=== PATIENT | female | born 1965 | race Caucasian/White ===

== ENCOUNTER 2016-04-20 20:24 | Emergency (ER) | payer OTHER ==
[~2016-04-20] VITALS: Ht 162.6 cm; Wt 70.9 kg
[~2016-04-20 20:24] MED LIST: FLUO10CA48 PO; MECL1TAB42 PO; PRLSR20 PO
[2016-04-20 20:26] VITALS: TEMP 36.7; Ht 162.6 cm; Wt 70.9 kg
[2016-04-20 21:31] LABS: BASO % 0.3 %; BASO ABS # 0.02 K/uL (0-0.2); COMPLETE YES; IG% 0.2 %; LYMPH % 25.8 %; LYMPH ABS # 1.48 K/uL (1.2-3.4); MEAN CELL VOLUME 82.2 fL (80-100); MEAN CORPUSCULAR HEMOGLOBIN 27.2 pg (25-34); MEAN CORPUSCULAR HGB CONC 33.1 g/dl (32-36); MEAN PLATELET VOLUME 9.4 fL (7.4-10.4); MONO % 9.1 %; NEUT % 63.6 %; PLATELET COUNT 209 K/uL (130-400); RED BLOOD COUNT 4.26 M/uL (4.2-5.4); WHITE BLOOD COUNT 5.74 K/uL (4.8-10.8)
[2016-04-20 21:41] LABS: PARTIAL THROMBOPLASTIN RATIO 1.1; PROTHROMBIN TIME (PATIENT) 11.1 SECONDS (9.0-12.0)
[2016-04-20 21:51] LABS: ALT/SGPT 16 U/L (12-78); BLOOD UREA NITROGEN 10 mg/dl (7-18); BUN/CREATININE RATIO 12.4 (10-20); CALCIUM 8.6 mg/dl (8.5-10.1); CARBON DIOXIDE 26 mmol/L (21-32); CHLORIDE 106 mmol/L (98-107); GLUCOSE 86 mg/dl (70-99); POTASSIUM 3.5 mmol/L (3.5-5.1); SODIUM 142 mmol/L (136-145)
[2016-04-20 21:54] LABS: ALKALINE PHOSPHATASE 89 U/L (45-117); AST/SGOT 14 U/L (15-37)
--- NOTE | 2016-04-20 22:05 | DIAGNOSTIC IMAGING REPORT ---
CT OF THE HEAD WITHOUT CONTRAST CLINICAL HISTORY: Headache. Bruising. Evaluate for bleed. COMPARISON STUDY: Head CT November 30, 2015. CT DOSE: 537.48 mGy.cm TECHNIQUE: Helical axial images of the head were obtained without IV contrast. Automated exposure control was utilized for the study. FINDINGS: No acute intracranial hemorrhage, midline shift or mass effect is present. Brain volume is normal. Ventricular system is normal. The basilar cisterns are patent. No extra-axial collections are present. Yoder-white differentiation is maintained. There are no findings to suggest acute dural sinus thrombosis or acute territorial infarct. No calvarial fracture is present. A 9 mm left frontotemporal scalp lesion is unchanged. This is indeterminate. IMPRESSION: 1. No acute intracranial findings. 2. No calvarial fracture. 3. 9 mm left frontotemporal scalp lesion. This is indeterminate and could be correlated with physical exam. Electronically signed by: Terry Cancino M.D. 04/20/2016 10:04 PM Dictated Date/Time: 04/20/2016 10:01 PM
[2016-04-20 22:43] VITALS: BP 128/74; PULSE 78; O2SAT 99
--- NOTE | 2016-04-21 01:00 | EMERGENCY ROOM VISIT NOTE ---
History Report prepared by Susana: Gloria Nash Under the Supervision of: Dr. Dick Hendrix M.D. First contact with patient: 21:05 Chief Complaint: HEADACHE Stated Complaint: ROBLES, BRUISING History of Present Illness The patient is a 50 year old female who presents to the Emergency Room with complaints of an intermittent headache that began one week ago. The patient states that she went to her PCP's office today and discussed her headache. She also noted bruising throughout her body. The patient states that her headache is localized to the front of her head. It is not severe. She states that her PCP sent her to the emergency department for further evaluation. The patient notes that she has had intermittent nose bleeds for the past month. The patient states that she had been using Ibuprofen for her discomfort, and states that her PCP told her to stop taking it one week ago. The patient denies any fevers, chest pain, abdominal pain, rectal bleeding, or melena. Source of History: patient Onset: one week ago Position: head Quality: ache Timing: intermittent Associated Symptoms: No abdominal pain, No chest pain, No fevers, No melena Note: Associated Symptoms: nose bleeds Review of Systems See HPI for pertinent positives & negatives. A total of 10 systems reviewed and were otherwise negative. Past Medical & Surgical Medical Problems: (1) Abnormal CT scan, chest (2) Anxiety (3) Corpus luteum cyst (4) Depression (5) Diab Chloe Wo Compl, Type Ii Or Unspec Type, Not Uncntrld (6) Diarrhea (7) DM type 2 (diabetes mellitus, type 2) (8) GERD (gastroesophageal reflux disease) (9) H. pylori infection (10) H/o H pylori gastritis (11) H/O renal calculi (12) Hx-Vaccine Allergy (13) Hypertension Nos (14) Left ankle sprain (15) Menorrhagia Surgical Problems: (1) H/O total hysterectomy (2) H/O tubal ligation (3) History of cholecystectomy (4) S/p repair of ankle fracture Family History DVT MOTHER Diabetes mellitus Heart disease Hypertension Social History Smoking Status: Never Smoker Alcohol Use: none Drug Use: none Marital Status: , in relationship Housing Status: lives alone Occupation Status: employed Current/Historical Medications Scheduled Fluoxetine (Prozac), 10 MG PO DAILY Omeprazole (Prilosec), 20 MG PO BID Allergies Coded Allergies: Penicillins (Verified Allergy, Intermediate, SHORTNESS OF BREATH, 04/20/16) Tetanus Toxoid (Verified Allergy, Unknown, RASH, 04/20/16) Erythromycin (Verified Adverse Reaction, Unknown, N&V, 04/20/16) Physical Exam Vital Signs Date Time Temp Pulse Resp B/P Pulse Ox O2 Delivery O2 Flow Rate FiO2 04/20/16 22:43 78 20 128/74 99 04/20/16 21:58 73 18 139/80 99 Room Air 04/20/16 20:26 36.7 69 18 157/75 100 Room Air Physical Exam Constitutional: Vital signs reviewed. Eyes: Pupils are equal round reactive to light. Conjunctiva are noninjected. ENT: Pharynx is clear without erythema or exudate. Mucous membranes are moist. No nasal bleeding Neck supple without meningeal signs. Respiratory: Clear to auscultation bilaterally. Breath sounds are equal bilaterally. Cardiovascular: Regular rate and rhythm. No rubs or gallops. GI: Soft, nondistended and nontender. Bowel sounds are present. Musculoskeletal: No peripheral edema. No lower extremity tenderness. Integumentary: Scattered bruising to the thighs and upper arms, as well as the right hip. No petechia. keara to the left ankle. Neurological: The patient is awake and alert. Cranial nerves II-XII are intact. Motor is 5 out of 5 all extremities. Sensation is intact to light touch all extremities. Normal speech. No pronator drift. Psychiatric: Normal affect. Medical Decision & Procedures ER Provider Diagnostic Interpretation: CT results as stated below per my review and radiologist interpretation. CT OF THE HEAD WITHOUT CONTRAST CLINICAL HISTORY: Headache. Bruising. Evaluate for bleed. COMPARISON STUDY: Head CT November 30, 2015. CT DOSE: 537.48 mGy.cm TECHNIQUE: Helical axial images of the head were obtained without IV contrast. Automated exposure control was utilized for the study. FINDINGS: No acute intracranial hemorrhage, midline shift or mass effect is present. Brain volume is normal. Ventricular system is normal. The basilar cisterns are patent. No extra-axial collections are present. Yoder-white differentiation is maintained. There are no findings to suggest acute dural sinus thrombosis or acute territorial infarct. No calvarial fracture is present. A 9 mm left frontotemporal scalp lesion is unchanged. This is indeterminate. IMPRESSION: 1. No acute intracranial findings. 2. No calvarial fracture. 3. 9 mm left frontotemporal scalp lesion. This is indeterminate and could be correlated with physical exam. Electronically signed by: Terry Cancino M.D. 04/20/2016 10:04 PM Dictated Date/Time: 04/20/2016 10:01 PM Laboratory Results 04/20/16 21:20 Red Blood Count 4.26, Mean Corpuscular Volume 82.2, Mean Corpuscular Hemoglobin 27.2, Mean Corpuscular Hemoglobin Concent 33.1, Mean Platelet Volume 9.4, Neutrophils (%) (Auto) 63.6, Lymphocytes (%) (Auto) 25.8, Monocytes (%) (Auto) 9.1, Eosinophils (%) (Auto) 1.0, Basophils (%) (Auto) 0.3, Neutrophils # (Auto) 3.65, Lymphocytes # (Auto) 1.48, Monocytes # (Auto) 0.52, Eosinophils # (Auto) 0.06, Basophils # (Auto) 0.02 04/20/16 21:20 Test 04/20/16 21:20 White Blood Count 5.74 K/uL (4.8-10.8) Red Blood Count 4.26 M/uL (4.2-5.4) Hemoglobin 11.6 g/dL (12.0-16.0) Hematocrit 35.0 % (37-47) Mean Corpuscular Volume 82.2 fL (80-100) Mean Corpuscular Hemoglobin 27.2 pg (25-34) Mean Corpuscular Hemoglobin Concent 33.1 g/dl (32-36) Platelet Count 209 K/uL (130-400) Mean Platelet Volume 9.4 fL (7.4-10.4) Neutrophils (%) (Auto) 63.6 % Lymphocytes (%) (Auto) 25.8 % Monocytes (%) (Auto) 9.1 % Eosinophils (%) (Auto) 1.0 % Basophils (%) (Auto) 0.3 % Neutrophils # (Auto) 3.65 K/uL (1.4-6.5) Lymphocytes # (Auto) 1.48 K/uL (1.2-3.4) Monocytes # (Auto) 0.52 K/uL (0.11-0.59) Eosinophils # (Auto) 0.06 K/uL (0-0.5) Basophils # (Auto) 0.02 K/uL (0-0.2) RDW Standard Deviation 42.1 fL (36.4-46.3) RDW Coefficient of Variation 14.0 % (11.5-14.5) Immature Granulocyte % (Auto) 0.2 % Immature Granulocyte # (Auto) 0.01 K/uL (0.00-0.02) Prothrombin Time 11.1 SECONDS (9.0-12.0) Prothromb Time International Ratio 1.0 (0.9-1.1) Activated Partial Thromboplast Time 28.7 SECONDS (21.0-31.0) Partial Thromboplastin Ratio 1.1 Anion Gap 10.0 mmol/L (3-11) Est Creatinine Clear Calc Drug Dose 83.1 ml/min Estimated GFR () 101.0 Estimated GFR (Non- 87.2 BUN/Creatinine Ratio 12.4 (10-20) Calcium Level 8.6 mg/dl (8.5-10.1) Total Bilirubin 0.4 mg/dl (0.2-1) Direct Bilirubin < 0.1 mg/dl (0-0.2) Aspartate Amino Transf (AST/SGOT) 14 U/L (15-37) Alanine Aminotransferase (ALT/SGPT) 16 U/L (12-78) Alkaline Phosphatase 89 U/L (45-117) Total Protein 7.6 gm/dl (6.4-8.2) Albumin 3.7 gm/dl (3.4-5.0) Laboratory results as reviewed by me. ED Course 2106: The patient was evaluated in room C11B. A complete history and physical exam was performed. 2232: I reevaluated the patient and I discussed her test results. She verbalized complete understanding and agreement with the treatment plan. She is ready to go home. Medical Decision This is a 50-year-old female who presents with easy bruising and nosebleeds as well as headache. Differential diagnosis includes migraine headache, intracranial mass, intracranial hemorrhage, bleeding diathesis. I did perform a limited focused review of portions of the patient's old chart on the electronic medical record. The patient had a catscan of her head in November of last year that showed no acute intracranial findings. I did evaluate the patient as noted above. She is presenting with intermittent headaches for the past week. She is neurologically intact. She also has had easy bruising but has been using ibuprofen, although she did stop recently. I suspect the bleeding may be secondary to the ibuprofen use. IV access was established. I did order and review the patient's blood work as noted in the electronic medical record. Coags are unremarkable. She does have mild anemia. She has had anemia in the past. I did order a CT of the head. I did review the images myself as well as the radiology report as described above. There is no evidence of acute intracranial abnormalities. I did discuss the test results with the patient. I did recommend further workup by her physician. She was discharged in good condition. Impression Primary Impression: Headache Additional Impression: Bruising Scribe Attestation The scribe's documentation has been prepared under my direct and personally reviewed by me in its entirety. I confirm that the note above accurately reflects all work, treatment, procedures, and medical decision making performed by me. Departure Information Dispostion Home / Self-Care Referrals Amparo Art M.D. (PCP) Forms HOME CARE DOCUMENTATION FORM, IMPORTANT VISIT INFORMATION Patient Instructions Headache Pain, My [facility] Additional Instructions You have been examined and treated today on an emergency basis only. This is not a substitute for, or an effort to provide, complete comprehensive medical care. It is impossible to recognize and treat all injuries or illnesses in a single emergency department visit. It is therefore important that you follow up closely with your physician. Call as soon as possible for an appointment. Return for worsening symptoms or if you develop fever, vomiting, black or bloody stools, blood in your urine or any other concerning symptoms. Problem Qualifiers
== END 2016-04-20 22:44 | disposition home or self-care (01) ==
LOC: C.EDB 20:25 → C.EDC 22:44
DX: R51 Headache (principal); E11.9 Type 2 diabetes mellitus without complications; I10 Essential (primary) hypertension; K21.9 Gastro-esophageal reflux disease without esophagitis; F32.9 Major depressive disorder, single episode, unspecified; F41.9 Anxiety disorder, unspecified; N83.209 Unspecified ovarian cyst, unspecified side; Z87.442 Personal history of urinary calculi; Z87.828 Personal history of other (healed) physical injury and trauma; Z87.19 Personal history of other diseases of the digestive system; Z88.7 Allergy status to serum and vaccine; Z90.710 Acquired absence of both cervix and uterus; Z98.51 Tubal ligation status; Z90.49 Acquired absence of other specified parts of digestive tract; Z98.890 Other specified postprocedural states; Z79.899 Other long term (current) drug therapy; Z88.0 Allergy status to penicillin; Z88.1 Allergy status to other antibiotic agents; Z88.8 Allergy status to other drugs, medicaments and biological substances

== ENCOUNTER → 2017-01-04 | Outpatient (CLI) | payer OTHER ==
[~2017-01-04] MED LIST changes: -MECL1TAB42 PO
== END | disposition home or self-care (01) ==
LOC: C.PATHSPEC 11:44
PROVIDERS: ATTEND Plastic Surgery
DX: D23.4 Other benign neoplasm of skin of scalp and neck (principal)

== ENCOUNTER → 2017-01-21 | Outpatient (CLI) | payer OTHER ==
[~2017-01-21] MED LIST changes: +HYDR-5688 PO
[2017-01-21 09:45] LABS: BASO % 0.4 %; BASO ABS # 0.02 K/uL (0-0.2); COMPLETE YES; EOS % 1.7 %; HEMATOCRIT 40.2 % (37-47); IG% 0.4 %; LYMPH % 24.5 %; MEAN CELL VOLUME 89.1 fL (80-100); MEAN CORPUSCULAR HEMOGLOBIN 29.7 pg (25-34); MEAN CORPUSCULAR HGB CONC 33.3 g/dl (32-36); MEAN PLATELET VOLUME 10.4 fL (7.4-10.4); MONO % 7.5 %; NEUT % 65.5 %; PLATELET COUNT 202 K/uL (130-400); RED BLOOD COUNT 4.51 M/uL (4.2-5.4); WHITE BLOOD COUNT 5.31 K/uL (4.8-10.8)
[2017-01-21 09:56] LABS: INR 0.9 (0.9-1.1); PARTIAL THROMBOPLASTIN RATIO 1.1; PROTHROMBIN TIME (PATIENT) 9.9 SECONDS (9.0-12.0)
[2017-01-21 10:17] LABS: BLOOD UREA NITROGEN 10 mg/dl (7-18); BUN/CREATININE RATIO 11.6 (10-20); CALCIUM 8.4 mg/dl (8.5-10.1); CARBON DIOXIDE 27 mmol/L (21-32); CHLORIDE 104 mmol/L (98-107); CREATININE 0.89 mg/dl (0.60-1.20); GLUCOSE 109 mg/dl (70-99); POTASSIUM 3.7 mmol/L (3.5-5.1); SODIUM 137 mmol/L (136-145)
== END | disposition home or self-care (01) ==
LOC: C.LAB 09:11
PROVIDERS: ATTEND Physician Assistant
DX: Z01.818 Encounter for other preprocedural examination (principal); R23.3 Spontaneous ecchymoses

== ENCOUNTER → 2017-01-24 | Day surgery (SDC) | payer SELFPAY ==
[2017-01-23 14:41] VITALS: Ht 162.6 cm; Wt 68.2 kg
[~2017-01-24] VITALS: Ht 162.6 cm; Wt 68.2 kg
[~2017-01-24] MED LIST changes: +ACETAMINOPHEN 325 MG TAB PO PRN; +ATROPINE SULFATE 0.1 MG/ML 5ML SYR IV PRN; +BACITRACIN/POLYMYXIN B OINT 15 GM TUBE EXT ONE; +CLINDAMYCIN PHOS 150 MG/ML 2 ML VIAL IV SCH; +DEXAMETHASONE SOD INJ 4 MG/ML VIAL ONE; +EpHEDrine SULFATE INJ 50 MG/ML AMP IV PRN; +FENTANYL CITRATE INJ 50 MCG/1 ML 2 ML VIAL IV PRN; +FENTANYL CITRATE INJ 50 MCG/1 ML 2 ML VIAL ONE; +LACTATED RINGER'S 1000ML 1,000 ML IV SCH; +LIDOCAINE HCL 2% 2 ML VIAL (20MG/ML) ONE; +LIDOCAINE/EPINEPHRINE 1% INJ 50 ML VIAL ONE; +METOCLOPRAMIDE HCL INJ 5 MG/ML 2 ML VIAL IV PRN; +MIDAZOLAM HCL 1 MG/ML 2ML VIAL ONE; +ONDANSETRON INJ 2 MG/ML 2 ML VIAL IV PRN; +ONDANSETRON INJ 2 MG/ML 2 ML VIAL ONE; +OXYCODONE/ACETAMINOPHEN 5-325 TAB PO PRN; +POVIDONE-IODINE OP SOLN 30 ML BTL ONE; +PROPOFOL IV EMULSION 10 MG/ML 20 ML VIAL IV ONE; +SODIUM CHLORIDE 0.9% 1000ML 1,000 ML IV SCH
--- NOTE | 2017-01-24 12:08 | History & Physical Bridge - SC ---
H&P Re-Evaluation Bridge Note: I have examined the patient, reviewed the History & Physical and in the interval since the performance of the History & Physical I have noted the following changes of clinical significance: No changes noted
--- NOTE | 2017-01-24 13:31 | [facility] Post Operative Brief Note ---
Immediate Operative Summary Operative Date Jan 24, 2017. Pre-Operative Diagnosis Nevus Sebaceous, Scalp Post-Operative Diagnosis Same Procedure(s) Performed Left Scalp Nevus Excision, complex wound closure Surgeon Dr. Orellana Nursing Home Administrator Surgeon(s) Kandi Farooq PA-C Estimated Blood Loss 5 ml Findings large, bleeding nevus sebaceous Specimens A. Nevus Sebaceous Left Scalp Anesthesia local with sedation Complication(s) None Disposition Recovery Room / PACU
[2017-01-24 13:32] VITALS: TEMP 36.7
--- NOTE | 2017-01-24 13:33 | Discharge Instructions ---
Discharge Instructions Date of Service Jan 24, 2017. Admission Reason for Admission: Nevus Sebaceous, Scalp Discharge Discharge Diagnosis / Problem: nevus sebaceous Discharge Goals Goal(s): Decrease discomfort, Improve function Activity Recommendations Activity Limitations: per Instructions/Follow-up section ACTIVITY RECOMMENDATIONS: __Normal activities _x_No bending, lifting or straining for at least 48 hours. Gradual return to activity after __No driving _x_Driving allowed when you are off pain medications _x_Walking permitted __You should have help at home for ___ days DRESSINGS: __No dressings required __Keep dressings dry/in place until first office visit x__Remove dressings _48 hours__ and replace with gauze/headband _x_Apply ice _2-3__ days (20 min on/ 20 min off as tolerated while awake) __Remove dressings and reapply garment _x_Apply antibiotic ointment (Bacitracin, polysporin, etc) to wounds 3-4 times/ day for 10 days BATHING: __Keep dressings dry _x_Sponge bathing permitted _x_Showering permitted in 48 hours _x_No swimming, hot tubs or soaking in a tub MEDICATIONS: Resume previous medications unless instructed otherwise by your surgeon. _x_Do not use aspirin, Motrin, Advil or Ibuprofen as these may promote bleeding. Please use Tylenol. _x_Prescription(s) provided: a new script for pain medication was provided for you today OTHER INSTRUCTIONS: __Record drain output 2-3 times per day SPECIAL CARE INSTRUCTIONS: * It is normal to have a mild fever after surgery. If your temperature is higher than 101.5 degrees F, please call the office at [phone]. * Constipation is a typical side effect of pain medication. An over-the- counter stool softener will help relieve this. * Leaking around surgical drains may occur and should not cause concern. Sometimes these drains become clogged. If this happens, remove the bulb and milk the clot out of the tube, then replace the bulb. * Drainage from wounds after liposuction is normal and should be expected. Garments will become soiled. You should protect furniture and bedding. This drainage should mostly subside within 2-3 days. Leave garments in place unless instructed to remove them. * If you have unusual drainage from a wound or are concerned you have an infection or have any questions or concerns, please call the office at [phone]. FOLLOW UP VISIT: If not already scheduled, please call the office, , when you return home after surgery to schedule an appointment to be seen in __14_ days. call to be seen sooner with any questions or concerns . Current Hospital Diet Patient's current hospital diet: Discharge Diet Recommended Diet: Regular Diet Procedures Procedures Performed: Left Scalp Nevus Excision Pending Studies Studies pending at discharge: yes List of pending studies: pathology Medical Emergencies . Who to Call and When: Medical Emergencies: If at any time you feel your situation is an emergency, please call 911 immediately. . Non-Emergent Contact Non-Emergency issues call your: Primary Care Provider . "Provider Documentation" section prepared by Marisa Farooq. . VTE Core Measure Inpt VTE Proph given/why not?: SCD's [place] Drug Monitoring Program Search Results: see additional documentation (patient lost her original script. PDMP checked and it was not filled. A new script with smaller amount of pills prescribed today)
--- NOTE | 2017-01-24 14:08 | Anesthesiology Progress Note ---
Anesthesia Post Op Note Date & Time Jan 24, 2017 at 14:08 Vital Signs Pain Intensity: 3.0 Vital Signs Past 12 Hours Date Time Temp Pulse Resp B/P (MAP) Pulse Ox O2 Delivery O2 Flow Rate FiO2 01/24/17 13:32 36.7 76 16 121/77 (92) 100 Room Air 01/24/17 11:47 36.9 75 16 118/73 (88) 100 Room Air Notes Mental Status: alert / awake / arousable, participated in evaluation Nausea / Vomiting: adequately controlled Pain: adequately controlled Airway Patency, RR, SpO2: stable & adequate BP & HR: stable & adequate Hydration State: stable & adequate Anesthetic Complications: no major complications apparent
[2017-01-24 14:15] VITALS: BP 123/87; PULSE 64; O2SAT 100
--- NOTE | 2017-01-24 15:10 | OPERATIVE REPORT ---
DATE OF OPERATION: 01/24/2017 PREOPERATIVE DIAGNOSIS: Nevus sebaceous left scalp. POSTOPERATIVE DIAGNOSIS: Same. PROCEDURE: Excision nevus sebaceous left scalp with complex wound closure. SURGEON: Elayne Orellana M.D. FIELD RETURN REPAIRER: Marisa Farooq PA-C. ANESTHESIA: Local with sedation. COMPLICATIONS: None. INDICATION FOR THE PROCEDURE: The patient is a 51-year-old female who presented to my office with a crusting and bleeding lesion of her left temporal scalp which she stated had been present since . For about the last 20 years, she experienced bleeding and crusting at the site and came in to have it evaluated. Physical examination showed nevus sebaceous. 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 We discussed excision due to symptoms and risk of malignant transformation. OPERATION AND FINDINGS: BRIEF DESCRIPTION OF THE PROCEDURE: The risks, benefits and alternatives of the procedure were explained to the patient who agreed and signed consent. She was identified and marked in the preoperative holding area. She was brought to the operating room where she was positioned supine and placed under sedation without incident. Surgical site was prepped and draped sterilely. A time-out procedure was performed. 1% lidocaine with epinephrine was used to anesthetize the planned surgical site. The maximal excision was 5 x 2 cm. A 15 blade scalpel was used to make the incision beveling through the hair follicles in order to facilitate hair growth. Incision was carried down to the galea. The lesion was excised in this plane using electrocautery. Superior incision was then made and the specimen was passed off. Hemostasis was achieved with electrocautery. Due to the location and large size of this wound, it was unable to be closed using intermediate closure. I therefore performed wide undermining of the scalp in the subgaleal plane and performed galeal scoring at about 1 cm intervals on both sides of the incision in order to facilitate closure. Hemostasis was achieved using electrocautery. I began closing by placing a 3-0 nylon interrupted suture in the mid portion of the wound and to allow for some intraoperative tissue expansion during closure. 3-0 PDS interrupted dermal sutures were then placed followed by 3-0 nylon interrupted skin sutures. Total wound closure length was 6 cm. The procedure was tolerated well. Antibiotic ointment was placed followed by a dry dressing. Marisa Farooq PA-C was present and scrubbed throughout the entire procedure and was instrumental in allowing for visualization by suctioning and assisting in achieving hemostasis. I attest to the content of the Intraoperative Record and any orders documented therein. Any exception s are noted below.
== END | disposition home or self-care (01) ==
LOC: X.SURG 11:34
PROVIDERS: ATTEND Plastic Surgery
DX: D22.9 Melanocytic nevi, unspecified (principal); R23.3 Spontaneous ecchymoses; K21.9 Gastro-esophageal reflux disease without esophagitis; M19.90 Unspecified osteoarthritis, unspecified site; F32.9 Major depressive disorder, single episode, unspecified; R73.03 Prediabetes; Z87.440 Personal history of urinary (tract) infections; Z87.442 Personal history of urinary calculi; Z90.49 Acquired absence of other specified parts of digestive tract; Z90.710 Acquired absence of both cervix and uterus; Z83.3 Family history of diabetes mellitus; Z82.49 Family history of ischemic heart disease and other diseases of the circulatory system; Z87.891 Personal history of nicotine dependence; Z88.0 Allergy status to penicillin; Z87.81 Personal history of (healed) traumatic fracture

== ENCOUNTER 2017-02-17 19:42 | Emergency (ER) | payer SELFPAY ==
[~2017-02-17] VITALS: Ht 162.6 cm; Wt 74.7 kg
[~2017-02-17 19:42] MED LIST changes: -ACETAMINOPHEN 325 MG TAB PO PRN; -ATROPINE SULFATE 0.1 MG/ML 5ML SYR IV PRN; -BACITRACIN/POLYMYXIN B OINT 15 GM TUBE EXT ONE; -CLINDAMYCIN PHOS 150 MG/ML 2 ML VIAL IV SCH; -DEXAMETHASONE SOD INJ 4 MG/ML VIAL ONE; -EpHEDrine SULFATE INJ 50 MG/ML AMP IV PRN; -FENTANYL CITRATE INJ 50 MCG/1 ML 2 ML VIAL IV PRN; -FENTANYL CITRATE INJ 50 MCG/1 ML 2 ML VIAL ONE; -LACTATED RINGER'S 1000ML 1,000 ML IV SCH; -LIDOCAINE HCL 2% 2 ML VIAL (20MG/ML) ONE; -LIDOCAINE/EPINEPHRINE 1% INJ 50 ML VIAL ONE; -METOCLOPRAMIDE HCL INJ 5 MG/ML 2 ML VIAL IV PRN; -MIDAZOLAM HCL 1 MG/ML 2ML VIAL ONE; -ONDANSETRON INJ 2 MG/ML 2 ML VIAL IV PRN; -ONDANSETRON INJ 2 MG/ML 2 ML VIAL ONE; -OXYCODONE/ACETAMINOPHEN 5-325 TAB PO PRN; -POVIDONE-IODINE OP SOLN 30 ML BTL ONE; -PROPOFOL IV EMULSION 10 MG/ML 20 ML VIAL IV ONE; -SODIUM CHLORIDE 0.9% 1000ML 1,000 ML IV SCH
[2017-02-17 19:44] VITALS: TEMP 36.7; Ht 162.6 cm; Wt 74.7 kg
[2017-02-17] MEDS ORDERED: LIDOCAINE 1% BUFFERED INJ 20 ML VIAL INFIL ONE (20:00)
[2017-02-17 21:04] VITALS: BP 131/78; PULSE 71; O2SAT 98
--- NOTE | 2017-02-18 00:34 | EMERGENCY ROOM VISIT NOTE ---
ED Visit Note First contact with patient: 19:46 Chief Complaint: I fell and cut my head. History of Present Illness: Ms. España is a 51-year-old white female who ambulates into the ED complaining of a scalp laceration. Patient reports approximately one hour ago she was on a ladder taking down [employer] decorations. She reports she put her foot down, lost her balance and fell to the ground. She reports she is approximately 3 steps up the ladder. She reports she struck her head on a piece of concrete. Before the injury she reports she had no lightheaded or dizziness, the time of the injury she reports she had no loss of consciousness and since the injury she denies all signs of head injury. She reports she got up immediately went into the house and a few minutes later she noted that there was some blood on her shoulder and a family member found her scalp laceration. Additionally she denies any pain in the area of her laceration. She denies dizziness, lightheadedness, abnormal neurological symptoms, neck pain , back pain, chest pain, shortness of breath, abdominal pain, nausea/vomiting, extremity weakness/numbness/tingling. Review of Systems: As noted above in history of present illness. 8 body systems were reviewed and found to be negative as noted above. Past Medical History: GERD, anemia, arthritis, kidney stone, depression, menorrhagia, migraine headache, rectocele, urinary tract infection, uterine lelomyoma, status post tubal ligation, hysterectomy, cholecystectomy, unspecified ankle surgery and skin lesion removal. Current Medications: Prozac. Allergies to Medications: Erythromycin, penicillin and tetanus toxoid. Social History: Patient is currently employed; she feels safe in her home environment; she denies tobacco and alcohol use. Tetanus Immunization Status: Not up to date. Physical Examination: Vital Signs: Date Time Temp Pulse Resp B/P (MAP) Pulse Ox O2 Delivery O2 Flow Rate FiO2 02/17/17 21:04 71 18 131/78 98 02/17/17 19:44 36.7 104 18 155/88 100 Room Air GENERAL: 51-year-old female in no acute distress, nontoxic-appearing, afebrile and hemodynamically stable. NEUROLOGICAL: Awake, alert and oriented to person, place and time. Answering questions appropriately and following commands. Normal gait. Romberg test negative. Pronator drift test negative. Cranial nerves II through XII grossly intact. Good hand eye coordination. SKIN: Warm, dry and pink. Scalp: Over the temporal occipital area with slight prominence on the left patient has a 4.2 cm full-thickness laceration. No active bleeding. HEENT: Skull: Soft tissue injury as noted above. No bony tenderness, swelling , ecchymosis, crepitus or depressions. No raccoon's eyes or almanza signs. No drainage from the ears of the nostril; no hemotympanum. Face: No bony tenderness, swelling or ecchymosis. PERRLA. EOMI. no malocclusion. No intraoral trauma. Airway patent. Speech is normal and clear. Trachea midline. No jugular venous distention. BACK: No tenderness over the bony cervical and thoracic spine. Full range of motion of the cervical spine. ED Course: Patient is assessed as noted above. Patient's medication list was reviewed. Wound Repair: Complexity: Basic Verbal consent was obtained after the risks and benefits were explained. The skin was prepped with betadine and a sterile field set. Wound edges of the wound was anesthetized with 3.3 ml buffered 1% lidocaine. The wound was explored for foreign bodies and none found. Copious irrigation was performed using sterile saline. With direct pressure the bleeding subsided. Debridement was not performed. The wound edges were approximated using 7 danisha. Hemostasis and excellent approximation was achieved. Antibacterial ointment applied. No complications and the patient tolerated the procedure well. Patient was educated about tonight's findings and instructed on her treatment plan; she verbalizes understanding and agreement with this plan. Clinical Impression: Laceration of the temporal/occipital scalp. Disposition: Patient discharged home in stable condition accompanied by multiple family members in stable condition. Plan: Comfort measures, wound care, and signs of infection were discussed with the patient. Patient was educated on signs of head injury. Patient was encouraged to follow-up with PCP or return to the ED for signs of infection and/or staple removal in 10-12 days. Patient was encouraged return ED for any signs of head injury or any new/ concerning symptoms.
[2017-10-10] MEDS ORDERED: MULT-506 PO (08:42)
[2017-10-10] MEDS ORDERED: CHOL2000 PO (08:42)
== END 2017-02-17 21:06 | disposition home or self-care (01) ==
LOC: C.EDB 19:43 → C.EDD 21:06
DX: S01.01XA Laceration without foreign body of scalp, initial encounter (principal); W11.XXXA Fall on and from ladder, initial encounter; Y92.89 Other specified places as the place of occurrence of the external cause

== ENCOUNTER → 2017-04-25 | Outpatient (CLI) | payer OTHER ==
[~2017-04-25] MED LIST changes: -FLUO10CA48 PO; +FLUO20CA35 PO; -HYDR-5688 PO; -PRLSR20 PO
[2017-04-25 17:13] LABS: BASO % 0.1 %; BASO ABS # 0.01 K/uL (0-0.2); EOS % 0.3 %; EOS ABS # 0.02 K/uL (0-0.5); HEMATOCRIT 40.4 % (37-47); HEMOGLOBIN 13.7 g/dL (12.0-16.0); IG# 0.01 K/uL (0.00-0.02); LYMPH % 16.7 %; LYMPH ABS # 1.13 K/uL (1.2-3.4); MEAN CELL VOLUME 88.2 fL (80-100); MEAN CORPUSCULAR HEMOGLOBIN 29.9 pg (25-34); MEAN CORPUSCULAR HGB CONC 33.9 g/dl (32-36); MEAN PLATELET VOLUME 11.1 fL (7.4-10.4); MONO % 5.3 %; MONO ABS # 0.36 K/uL (0.11-0.59); NEUT % 77.5 %; NEUT ABS # 5.25 K/uL (1.4-6.5); PLATELET COUNT 213 K/uL (130-400); RED CELL DISTRIBUTION WIDTH CV 12.8 % (11.5-14.5); WHITE BLOOD COUNT 6.78 K/uL (4.8-10.8)
[2017-04-25 17:29] LABS: BLOOD UREA NITROGEN 6 mg/dl (7-18); CALCIUM 8.7 mg/dl (8.5-10.1); CARBON DIOXIDE 26 mmol/L (21-32); CREATININE 0.85 mg/dl (0.60-1.20); GLUCOSE 101 mg/dl (70-99); POTASSIUM 3.7 mmol/L (3.5-5.1); SODIUM 137 mmol/L (136-145)
== END | disposition home or self-care (01) ==
LOC: C.LABPVFM 09:02
PROVIDERS: ATTEND Nurse Practitioner
DX: G43.109 Migraine with aura, not intractable, without status migrainosus (principal)

== ENCOUNTER 2017-09-21 10:08 | Emergency (ER) | payer SELFPAY ==
[~2017-09-21] VITALS: Ht 162.6 cm; Wt 72.3 kg
[2017-09-21 10:12] VITALS: TEMP 36.5; Ht 162.6 cm; Wt 72.3 kg
[2017-09-21] MEDS ORDERED: ONDANSETRON INJ 2 MG/ML 2 ML VIAL ONE (10:45)
[2017-09-21] MEDS ORDERED: SODIUM CHLORIDE 0.9% 1000ML 500 ML IV ONE (10:51)
[2017-09-21 10:59] LABS: HEMATOCRIT 37.3 % (37-47); HEMOGLOBIN 12.9 g/dL (12.0-16.0); MEAN CELL VOLUME 88.2 fL (80-100); MEAN CORPUSCULAR HEMOGLOBIN 30.5 pg (25-34); MEAN CORPUSCULAR HGB CONC 34.6 g/dl (32-36); MEAN PLATELET VOLUME 10.3 fL (7.4-10.4); PLATELET COUNT 171 K/uL (130-400); RED CELL DISTRIBUTION WIDTH CV 12.6 % (11.5-14.5); RED CELL DISTRIBUTION WIDTH SD 40.6 fL (36.4-46.3); WHITE BLOOD COUNT 6.14 K/uL (4.8-10.8)
[2017-09-21] MEDS ORDERED: CHOL2000 PO (11:07)
[2017-09-21 11:19] LABS: CALCIUM 8.6 mg/dl (8.5-10.1); CREATININE 0.79 mg/dl (0.60-1.20); POTASSIUM 4.3 mmol/L (3.5-5.1)
[2017-09-21] MEDS ORDERED: OPTIRAY 320 IV PRN (11:30)
--- NOTE | 2017-09-21 11:37 | EMERGENCY ROOM VISIT NOTE ---
ED Visit Note First contact with patient: 11:01 CHIEF COMPLAINT: Right-sided abdominal and flank pain, nausea/vomiting and diarrhea HISTORY OF PRESENTING ILLNESS: This is a 51-year-old female who presents to the emergency department by private vehicle with complaint of right flank and lower quadrant abdominal pain. She states for the past 2 days she has had a decreased appetite and has been not feeling very well. She states that she started having severe right-sided abdominal pain last night and has gotten progressively worse today. She has had diarrhea yesterday and today that she describes as watery, nonbloody, 3-4 episodes total. She became very nauseated and vomited twice as well as having dry heaves. She states her abdominal pain is constant and severe, feels like a pressure and bloating, worse with movement , better with rest, currently rates as 8/10. She reports a history of kidney stones, but states that this feels very different and she does not think that is what is going on. She denies any urinary symptoms of dysuria, urinary frequency or hesitancy, or hematuria. She denies any symptoms of chest pain, shortness of breath, dizziness or syncope, headaches, back pain, or unusual rash. REVIEW OF SYSTEMS: A complete 10 point review of systems was reviewed with the patient with pertinent positives and negatives as per history of present illness. All else were negative. PAST MEDICAL HISTORY: Reviewed in chart, see problem list below. SOCIAL HISTORY: Lives at home. She is a current smoker. ALLERGIES: Reviewed in chart, see below. PHYSICAL EXAM: CONSTITUTIONAL: Pleasant and cooperative. No acute distress, but appears uncomfortable and in pain. Mildly dehydrated, but otherwise well appearing and well nourished. HEENT: Normocephalic, atraumatic. Pupils equal, round and reactive to light, EOMI. TMs normal. Pharynx normal. Tacky mucous membranes. NECK: Supple, full active range of motion without discomfort. RESPIRATORY: Clear to auscultation bilaterally with no wheezing, crackles, rhonchi or stridor. Equal expansion bilaterally. CARDIOVASCULAR: Regular rate and rhythm with no murmurs, rubs or gallops. Normal peripheral perfusion. No edema. GASTROINTESTINAL: Diffuse abdominal tenderness to palpation, most tender in the right lower quadrant. Positive rebound tenderness in the right lower quadrant, but no guarding. Positive McBurney's point tenderness. Soft, nondistended. No palpable masses or HSM. Bowel sounds present in all quadrants. No CVA tenderness bilaterally. MUSCULOSKELETAL: Full range of motion of all joints without discomfort. INTEGUMENTARY: No rash or other significant dermatologic conditions noted. NEUROLOGIC: Alert and oriented X 4 with normal affect. Normal strength and sensation in all 4 extremities. No focal neurologic deficits noted. Normal speech. Normal gait observed ED COURSE AND MEDICAL DECISION MAKING: CC: Patient presenting with complaint of right-sided abdominal pain/flank pain, nausea, vomiting, diarrhea DIFFERENTIAL DIAGNOSIS: Includes, but not limited to gastroenteritis, gastritis , peptic ulcer disease, food poisoning, cholelithiasis, pancreatitis, appendicitis, mesenteric adenitis, UTI, pyelonephritis, ureteral stone, ovarian pathology, colitis, diverticulitis, dehydration, electrolyte imbalance, among others. INTERPRETATION OF LABS: No leukocytosis, no anemia, normal platelets, no significant electrolyte abnormalities, normal renal function, normal liver enzymes and lipase. Negative serum . UA negative for infection, appears consistent with contaminated specimen. IMAGING: CHEST ONE VIEW PORTABLE CLINICAL HISTORY: ABDOMINAL PAIN/GI pain COMPARISON STUDY: 11/30/2015 FINDINGS: The bones soft tissues and hemidiaphragms are normal. The cardiomediastinal silhouette is normal. The lungs are clear. The pulmonary vasculature is normal. IMPRESSION: Negative chest. ------ ABDOMEN AND PELVIS CT WITH IV CONTRAST CT DOSE: 310.17 mGy.cm HISTORY: Acute right flank pain with nausea and vomiting right flank/RLQ pain, n/v, eval appe, obstr stone, colitis TECHNIQUE: Multiaxial CT images of the abdomen and pelvis were performed following the use of intravenous contrast. A dose lowering technique was utilized adhering to the principles of ALARA. COMPARISON STUDY: CT abdomen and pelvis 02/20/2016 FINDINGS: Lung bases are generally clear. No pneumatosis or pneumoperitoneum identified. Imaged inferior cardiac chambers are unremarkable. Prior cholecystectomy. Minimal intrahepatic delayed ductal dilation is likely on a postsurgical basis. Liver otherwise appears unremarkable. Spleen, pancreas and adrenal glands are unremarkable. Kidneys, ureters and bladder are within normal limits. Prior hysterectomy. Cystic appearing lesions about the bilateral adnexa measuring up to 2.0 cm on the left and 2.3 cm on the right. Multiple phleboliths of the pelvis. Aorta and IVC appear to be within normal limits. Portal vein appears patent. There are no pathologically enlarged lymph nodes identified. No bowel obstruction or focal bowel wall thickening. Terminal ileum is unremarkable. The appendix is not definitively seen. No secondary signs of acute appendicitis. Tiny fat filled periumbilical hernia. The imaged breast parenchyma and soft tissues are unremarkable. Multilevel facet arthropathy. IMPRESSION: 1. No bowel obstruction or focal bowel wall thickening. The appendix is not definitively seen, however there are no secondary signs to suggest acute appendicitis. 2. Bilateral ovarian cysts are redemonstrated measuring up to 2.3 cm on the right. 3. Prior cholecystectomy and hysterectomy. MEDICATION RECONCILIATION: I attest that I have personally reviewed the patient 's current medication list. INITIAL VITAL SIGNS REVIEW: I reviewed the patient's initial vital signs and interpret them as follows: T: Afebrile; BP: Hypertensive; HR: Within normal limits; RR: Within normal limits; Pulse Ox: Within normal limits on room air. Blood pressure screening: The patient was found to have an elevated blood pressure, which was felt to be situational. SUMMARY: Patient was evaluated at bedside, history and physical exam performed. Patient is alert and oriented, in no acute distress, but does appear uncomfortable and in pain, resting calmly in stretcher. Patient has diffuse generalized tenderness of the abdomen, most tender in the right lower quadrant with McBurney's point tenderness and rebound tenderness. No acute abdomen. Orders were placed at bedside for labs, UA, IV fluids for hydration, IV morphine for pain, IV Zofran for nausea, CT abdomen/pelvis with IV contrast to evaluate for appendicitis. Patient discussed with Dr. Quinones, who agrees with my assessment and plan. Labs and imaging reviewed as above. Unremarkable workup. Specifically, no evidence of acute appendicitis on CT. Patient continued to feel uncomfortable with bloating, pressure-like abdominal pain. She was given simethicone for this, was also given a dose of IV Toradol for continued pain management. Patient reassessed multiple times throughout ED stay, she is remained stable and afebrile, her pain is overall improved after medications as listed above. No evidence of acute abdomen on serial abdominal examinations. Patient was updated on all results and plan for discharge, she was encouraged to follow closely with her PCP. Rx for Zofran was sent to the pharmacy, she was educated regarding its use. Patient was also given strict return precautions should her symptoms worsen, she verbalized understanding. Patient was discharged home in stable condition and ambulatory. Problem List Medical Problems: (1) Abnormal CT scan, chest Status: Resolved (2) Anxiety Status: Chronic (3) Corpus luteum cyst Permanent Comment: right side Status: Chronic (4) Depression Status: Chronic (5) Diab Chloe Wo Compl, Type Ii Or Unspec Type, Not Uncntrld Status: Chronic (6) DM type 2 (diabetes mellitus, type 2) Status: Chronic (7) GERD (gastroesophageal reflux disease) Status: Chronic (8) H. pylori infection Status: Resolved (9) H/o H pylori gastritis Status: Chronic (10) H/O renal calculi Status: Chronic (11) Hx-Vaccine Allergy Status: Resolved (12) Hypertension Nos Status: Chronic (13) Left ankle sprain Status: Resolved (14) Menorrhagia Status: Resolved Surgical Problems: (1) H/O total hysterectomy Status: Chronic (2) H/O tubal ligation Status: Chronic (3) History of cholecystectomy Status: Chronic (4) S/p repair of ankle fracture Status: Chronic Current/Historical Medications Scheduled Cholecalciferol (Vitamin D3), 1 CAP PO DAILY Fluoxetine (Prozac), 20 MG PO DAILY Ondasetron Odt (Zofran Odt), 4 MG SL Q6H Allergies Coded Allergies: Penicillins (Verified Allergy, Intermediate, SHORTNESS OF BREATH, 09/21/17) Tetanus Toxoid (Verified Allergy, Intermediate, RASH, 09/21/17) Erythromycin (Verified Adverse Reaction, Mild, N&V, 09/21/17) Vital Signs Date Time Temp Pulse Resp B/P (MAP) Pulse Ox O2 Delivery O2 Flow Rate FiO2 09/21/17 16:33 16 115/85 99 09/21/17 13:32 60 16 112/73 96 Room Air 09/21/17 10:12 36.5 72 18 163/81 99 Room Air Laboratory Results 09/21/17 10:42 09/21/17 10:42 Test 09/21/17 10:42 Red Blood Count 4.23 M/uL (4.2-5.4) Mean Corpuscular Volume 88.2 fL (80-100) Mean Corpuscular Hemoglobin 30.5 pg (25-34) Mean Corpuscular Hemoglobin Concent 34.6 g/dl (32-36) RDW Standard Deviation 40.6 fL (36.4-46.3) RDW Coefficient of Variation 12.6 % (11.5-14.5) Mean Platelet Volume 10.3 fL (7.4-10.4) Urine Color YELLOW Urine Appearance CLEAR (CLEAR) Urine pH 6.0 (4.5-7.5) Urine Specific [place] 1.011 (1.000-1.030) Urine Protein NEG (NEG) Urine Glucose (UA) NEG (NEG) Urine Ketones NEG (NEG) Urine Occult Blood NEG (NEG) Urine Nitrite NEG (NEG) Urine Bilirubin NEG (NEG) Urine Urobilinogen NEG (NEG) Urine Leukocyte Esterase NEG (NEG) Urine WBC (Auto) 1-5 /hpf (0-5) Urine RBC (Auto) 0-4 /hpf (0-4) Urine Hyaline Casts (Auto) 0 /lpf (0-5) Urine Epithelial Cells (Auto) >30 /lpf (0-5) Urine Bacteria (Auto) 1+ (NEG) Anion Gap 5.0 mmol/L (3-11) Est Creatinine Clear Calc Drug Dose 84.0 ml/min Estimated GFR () 101.9 Estimated GFR (Non- 87.9 BUN/Creatinine Ratio 18.4 (10-20) Calcium Level 8.6 mg/dl (8.5-10.1) Total Bilirubin 0.3 mg/dl (0.2-1) Direct Bilirubin 0.1 mg/dl (0-0.2) Aspartate Amino Transf (AST/SGOT) 10 U/L (15-37) Alanine Aminotransferase (ALT/SGPT) 15 U/L (12-78) Alkaline Phosphatase 74 U/L (45-117) Total Protein 7.4 gm/dl (6.4-8.2) Albumin 3.8 gm/dl (3.4-5.0) Lipase 150 U/L (73-393) Human Chorionic Gonadotropin, Qual NEG (NEG) Medications Administered Medications (Trade) Dose Ordered Sig/Ross Route Start Time Stop Time Status Last Admin Dose Admin Ondansetron HCl (Zofran Inj) 4 mg STK-MED ONCE .ROUTE 09/21/17 10:45 09/21/17 10:46 DC 09/21/17 10:45 4 MG Sodium Chloride 500 ml @ 999 mls/hr Q31M ONCE IV 09/21/17 10:51 09/21/17 11:21 DC 09/21/17 10:51 999 MLS/HR Morphine Sulfate (MoRPHine SULFATE INJ) 4 mg NOW STAT IV 09/21/17 12:22 09/21/17 12:23 DC 09/21/17 12:35 4 MG Ondansetron HCl (Zofran Inj) 4 mg NOW STAT IV 09/21/17 12:22 09/21/17 12:23 DC 09/21/17 12:36 4 MG Ketorolac Tromethamine (Toradol Inj) 15 mg NOW STAT IV 09/21/17 14:26 09/21/17 14:27 DC 09/21/17 14:44 15 MG Simethicone (Mylicon Chew Tab) 160 mg NOW STAT PO 09/21/17 14:50 09/21/17 14:51 DC 09/21/17 15:09 160 MG Departure Information Impression Primary Impression: Abdominal pain Additional Impression: Nausea, vomiting, and diarrhea Dispostion Home / Self-Care Condition GOOD Prescriptions Ondasetron Odt (ZOFRAN ODT) 4 Mg Tab 4 MG SL Q6H for Nausea, #6 TAB Prov: Princess Lewis CRNP 09/21/17 Referrals Angela Velasquez (PCP) Patient Instructions ED Abdominal Pain Unkn Cause, ED Diet [place], ED Diet Clear Liquid, ED Food Poison Or Gastroenteritis, [facility] Additional Instructions You have been evaluated and treated in the Emergency Department today for your abdominal pain. Laboratory results and imaging studies have ruled out any emergent causes for your symptoms which would warrant admission or surgery. You have been prescribed Zofran to be used as needed for nausea/vomiting. Take as prescribed. For pain control, you can use the following [id number] medicines (if >12 yo): - Regular strength (325mg/tab) Tylenol (acetaminophen) 2 tabs every 4-6 hours as needed. Do not exceed 10 tablets in a 24 hour period. Avoid taking more than 3000 mg of Tylenol per day. This includes any other sources of acetaminophen you may take on a regular basis. - Regular strength (200 mg/tab) Advil (ibuprofen) 3 tabs every 6-8 hours as needed. Do not exceed a dose of 2400 mg per day. Drink plenty of fluids to stay well hydrated. Stick with clear liquid diet and bland diet until your symptoms are improved. Please follow-up with your Primary Care Provider in the next 2-3 days for reevaluation. Return to the emergency department for severe worsening abdominal or back pain, worsening nausea/vomiting, vomiting blood, blood in your stool or urine, fevers > 101.5, severe dizziness or passing out, or any other concerns. Work Instructions Return To Work: 3 days Problem Qualifiers Primary Impression: Abdominal pain Abdominal location: generalized Qualified Codes: R10.84 - Generalized abdominal pain
[2017-09-21 11:38] LABS: ALBUMIN 3.8 gm/dl (3.4-5.0); TOTAL PROTEIN 7.4 gm/dl (6.4-8.2)
--- NOTE | 2017-09-21 11:38 | DIAGNOSTIC IMAGING REPORT ---
CHEST ONE VIEW PORTABLE CLINICAL HISTORY: ABDOMINAL PAIN/GI pain COMPARISON STUDY: 11/30/2015 FINDINGS: The bones soft tissues and hemidiaphragms are normal. The cardiomediastinal silhouette is normal. The lungs are clear. The pulmonary vasculature is normal. IMPRESSION: Negative chest. The above report was generated using voice recognition software. It may contain grammatical, syntax or spelling errors. Electronically signed by: Puneet Adams M.D. 09/21/2017 11:37 AM Dictated Date/Time: 09/21/2017 11:37 AM
[2017-09-21] MEDS ORDERED: MoRPHine SULFATE 4 MG/ML 1 ML CARP\\VIAL IV STA (12:22)
[2017-09-21] MEDS ORDERED: ONDANSETRON INJ 2 MG/ML 2 ML VIAL IV STA (12:22)
--- NOTE | 2017-09-21 12:24 | DIAGNOSTIC IMAGING REPORT ---
ABDOMEN AND PELVIS CT WITH IV CONTRAST CT DOSE: 310.17 mGy.cm HISTORY: Acute right flank pain with nausea and vomiting right flank/RLQ pain, n/v, eval appe, obstr stone, colitis TECHNIQUE: Multiaxial CT images of the abdomen and pelvis were performed following the use of intravenous contrast. A dose lowering technique was utilized adhering to the principles of ALARA. COMPARISON STUDY: CT abdomen and pelvis 02/20/2016 FINDINGS: Lung bases are generally clear. No pneumatosis or pneumoperitoneum identified. Imaged inferior cardiac chambers are unremarkable. Prior cholecystectomy. Minimal intrahepatic delayed ductal dilation is likely on a postsurgical basis. Liver otherwise appears unremarkable. Spleen, pancreas and adrenal glands are unremarkable. Kidneys, ureters and bladder are within normal limits. Prior hysterectomy. Cystic appearing lesions about the bilateral adnexa measuring up to 2.0 cm on the left and 2.3 cm on the right. Multiple phleboliths of the pelvis. Aorta and IVC appear to be within normal limits. Portal vein appears patent. There are no pathologically enlarged lymph nodes identified. No bowel obstruction or focal bowel wall thickening. Terminal ileum is unremarkable. The appendix is not definitively seen. No secondary signs of acute appendicitis. Tiny fat filled periumbilical hernia. The imaged breast parenchyma and soft tissues are unremarkable. Multilevel facet arthropathy. IMPRESSION: 1. No bowel obstruction or focal bowel wall thickening. The appendix is not definitively seen, however there are no secondary signs to suggest acute appendicitis. 2. Bilateral ovarian cysts are redemonstrated measuring up to 2.3 cm on the right. 3. Prior cholecystectomy and hysterectomy. Electronically signed by: Manny Couch M.D. 09/21/2017 12:23 PM Dictated Date/Time: 09/21/2017 12:15 PM
[2017-09-21 13:32] VITALS: PULSE 60
[2017-09-21] MEDS ORDERED: KETOROLAC TROMETHAMINE 30 MG/ML VIAL IV STA (14:26)
[2017-09-21] MEDS ORDERED: SIMETHICONE 80 MG CHEW PO STA ×2 (14:29→14:50)
[2017-09-21] MEDS ORDERED: ONDA4TAB10 SL (15:46)
[2017-09-21 16:33] VITALS: BP 115/85; O2SAT 99
== END 2017-09-21 16:35 | disposition home or self-care (01) ==
LOC: C.EDB 10:09 → C.EDC 16:35
DX: R11.2 Nausea with vomiting, unspecified (principal); R19.7 Diarrhea, unspecified; E86.0 Dehydration; F32.9 Major depressive disorder, single episode, unspecified; F17.200 Nicotine dependence, unspecified, uncomplicated; Z88.0 Allergy status to penicillin; Z88.7 Allergy status to serum and vaccine; Z88.1 Allergy status to other antibiotic agents

== ENCOUNTER 2017-09-22 17:18 | Emergency (ER) | payer OTHER ==
[~2017-09-22] VITALS: Ht 162.6 cm; Wt 71.8 kg
[~2017-09-22 17:18] MED LIST changes: +CHOL2000 PO; +ONDA4TAB10 SL
[2017-09-22 17:21] VITALS: TEMP 36.5; Ht 162.6 cm; Wt 71.8 kg
[2017-09-22] MEDS ORDERED: SODIUM CHLORIDE 0.9% 1000ML 1,000 ML IV STA (17:29)
[2017-09-22] MEDS ORDERED: ONDANSETRON INJ 2 MG/ML 2 ML VIAL IV STA (17:29)
--- NOTE | 2017-09-22 17:43 | EMERGENCY ROOM VISIT NOTE ---
History Report prepared by Susana: Abhay Sosa Under the Supervision of: Dr. Douglas Fine D.O. First contact with patient: 17:24 Chief Complaint: ABDOMINAL PAIN Stated Complaint: LRQ PAIN- PHYSICIAN REFERRED History of Present Illness The patient is a 51 year old female who presents to the Emergency Room with complaints of constant abdominal pain since Monday, 2 days ago. The patient states that the pain onset sometime last week, but has been more constant for the past 2 days. She states that the pain is localized to her right lower quadrant and is "dull," with intermittent "stabbing" sensations. The pain is worsened by movement and eating, and is improved by applying pressure to the area. She did have some "loose" bowel movements on Monday, but did not have a movement yesterday or today. She has also been nauseous, but has not vomited. The patient adds that she was in the department yesterday for the same symptoms and had a CT scan performed. This imaging was unremarkable. She followed with her primary care office today and was referred back to the ER for r/o appendicitis. Source of History: patient Onset: 2 days ago Position: abdomen (RLQ) Quality: stabbing, dull Timing: constant Modifying Factors (Worsening): eating, movement Modifying Factors (Relieving): other (applying pressure) Associated Symptoms: + nausea, + diarrhea, No vomiting Review of Systems See HPI for pertinent positives & negatives. A total of 10 systems reviewed and were otherwise negative. Past Medical & Surgical Medical Problems: (1) Abnormal CT scan, chest (2) Anxiety (3) Corpus luteum cyst (4) Depression (5) Diab Chloe Wo Compl, Type Ii Or Unspec Type, Not Uncntrld (6) Diarrhea (7) DM type 2 (diabetes mellitus, type 2) (8) GERD (gastroesophageal reflux disease) (9) H. pylori infection (10) H/o H pylori gastritis (11) H/O renal calculi (12) Hx-Vaccine Allergy (13) Hypertension Nos (14) Left ankle sprain (15) Menorrhagia Surgical Problems: (1) H/O total hysterectomy (2) H/O tubal ligation (3) History of cholecystectomy (4) S/p repair of ankle fracture Family History DVT MOTHER Diabetes mellitus Heart disease Hypertension Social History Smoking Status: Never Smoker Alcohol Use: none Drug Use: none Marital Status: , in relationship Housing Status: lives alone Occupation Status: employed Current/Historical Medications Scheduled Fluoxetine (Prozac), 20 MG PO DAILY Allergies Coded Allergies: Penicillins (Verified Allergy, Intermediate, SHORTNESS OF BREATH, 09/22/17) Tetanus Toxoid (Verified Allergy, Intermediate, RASH, 09/22/17) Erythromycin (Verified Adverse Reaction, Mild, N&V, 09/22/17) Physical Exam Vital Signs Date Time Temp Pulse Resp B/P (MAP) Pulse Ox O2 Delivery O2 Flow Rate FiO2 09/22/17 20:14 68 20 119/68 99 Room Air 09/22/17 19:02 58 20 142/76 100 Room Air 09/22/17 17:21 36.5 67 16 148/80 99 Room Air Physical Exam GENERAL: Patient is awake, alert, and in no acute distress. Patient is resting comfortably and showing no signs of anxiety EYES: The conjunctivae are clear. The pupils are round and reactive. EARS, NOSE, MOUTH AND THROAT: The nose is without any evidence of any deformity. Mucous membranes are moist. Tongue is midline NECK: The neck is nontender and supple. RESPIRATORY: Normal respiratory effort is noted. There is no evidence of wheezing rhonchi or rales to auscultation. CARDIOVASCULAR: Regular rate and rhythm noted. There no murmurs rubs or gallops normal S1 normal S2 GASTROINTESTINAL: The abdomen is soft and nondistended. There is significant right sided TTP, with guarding in the RLQ. Bowel sounds are present in all quadrants. BACK: No midline tenderness or or step-off noted range of motion in flexion extension as well as rotation no signs of muscle spasm noted.There is right CVA tenderness appreciated to percussion, ROM intact. MUSCULOSKELETAL/EXTREMITIES: There is no evidence of gross deformity. Full range of motion is noted in the hips and shoulders. SKIN: There is no obvious evidence of any rash. There are no petechiae, pallor or cyanosis noted. NEUROLOGIC: Patient is awake alert and oriented x3. Medical Decision & Procedures ER Provider Diagnostic Interpretation: Radiology results as stated below per my review and radiologist interpretation: PELVIC COMPLETE NON OB CLINICAL HISTORY: RLQ pain, ovarian cyst PAIN COMPARISON STUDY: CT abdomen and pelvis 09/21/2017 FINDINGS: The uterus measured surgically absent. The right ovary measured 3.6 cm. Normal vascular flow. 2.4 x 2.3 cm simple cyst.. The left ovary measured 3.8 cm x 3.0 cm. Normal vascular flow. 2 cm simple cyst.. There is no ultrasonographic evidence of ovarian torsion. It should be noted that ovarian torsion can be present with normal Doppler ultrasonographic findings. There was no evidence of pathologic free pelvic fluid. IMPRESSION: Bilateral ovarian simple cysts. Otherwise negative study post hysterectomy. The above report was generated using voice recognition software. It may contain grammatical, syntax or spelling errors. Electronically signed by: Puneet Adams M.D. 09/22/2017 6:53 PM Dictated Date/Time: 09/22/2017 6:52 PM Laboratory Results 09/22/17 17:48 Red Blood Count 4.39, Mean Corpuscular Volume 88.6, Mean Corpuscular Hemoglobin 29.8, Mean Corpuscular Hemoglobin Concent 33.7, Mean Platelet Volume 10.5, Neutrophils (%) (Auto) 73.4, Lymphocytes (%) (Auto) 19.2, Monocytes (%) (Auto) 6.7, Eosinophils (%) (Auto) 0.5, Basophils (%) (Auto) 0.1, Neutrophils # (Auto) 5.95, Lymphocytes # (Auto) 1.56, Monocytes # (Auto) 0.54, Eosinophils # (Auto) 0.04, Basophils # (Auto) 0.01 09/22/17 17:48 Test 09/22/17 17:45 09/22/17 17:48 Urine Color YELLOW Urine Appearance CLEAR (CLEAR) Urine pH 6.0 (4.5-7.5) Urine Specific [place] 1.011 (1.000-1.030) Urine Protein NEG (NEG) Urine Glucose (UA) NEG (NEG) Urine Ketones NEG (NEG) Urine Occult Blood NEG (NEG) Urine Nitrite NEG (NEG) Urine Bilirubin NEG (NEG) Urine Urobilinogen NEG (NEG) Urine Leukocyte Esterase NEG (NEG) White Blood Count 8.11 K/uL (4.8-10.8) Red Blood Count 4.39 M/uL (4.2-5.4) Hemoglobin 13.1 g/dL (12.0-16.0) Hematocrit 38.9 % (37-47) Mean Corpuscular Volume 88.6 fL (80-100) Mean Corpuscular Hemoglobin 29.8 pg (25-34) Mean Corpuscular Hemoglobin Concent 33.7 g/dl (32-36) Platelet Count 202 K/uL (130-400) Mean Platelet Volume 10.5 fL (7.4-10.4) Neutrophils (%) (Auto) 73.4 % Lymphocytes (%) (Auto) 19.2 % Monocytes (%) (Auto) 6.7 % Eosinophils (%) (Auto) 0.5 % Basophils (%) (Auto) 0.1 % Neutrophils # (Auto) 5.95 K/uL (1.4-6.5) Lymphocytes # (Auto) 1.56 K/uL (1.2-3.4) Monocytes # (Auto) 0.54 K/uL (0.11-0.59) Eosinophils # (Auto) 0.04 K/uL (0-0.5) Basophils # (Auto) 0.01 K/uL (0-0.2) RDW Standard Deviation 40.5 fL (36.4-46.3) RDW Coefficient of Variation 12.5 % (11.5-14.5) Immature Granulocyte % (Auto) 0.1 % Immature Granulocyte # (Auto) 0.01 K/uL (0.00-0.02) Anion Gap 5.0 mmol/L (3-11) Est Creatinine Clear Calc Drug Dose 81.6 ml/min Estimated GFR () 98.8 Estimated GFR (Non- 85.3 BUN/Creatinine Ratio 10.6 (10-20) Calcium Level 8.4 mg/dl (8.5-10.1) Magnesium Level 2.1 mg/dl (1.8-2.4) Total Bilirubin 0.3 mg/dl (0.2-1) Direct Bilirubin < 0.1 mg/dl (0-0.2) Aspartate Amino Transf (AST/SGOT) 17 U/L (15-37) Alanine Aminotransferase (ALT/SGPT) 22 U/L (12-78) Alkaline Phosphatase 83 U/L (45-117) Total Protein 7.8 gm/dl (6.4-8.2) Albumin 3.8 gm/dl (3.4-5.0) Lipase 147 U/L (73-393) Human Chorionic Gonadotropin, Qual NEG (NEG) Laboratory results per my review. Medications Administered Medications (Trade) Dose Ordered Sig/Ross Route Start Time Stop Time Status Last Admin Dose Admin Ondansetron HCl (Zofran Inj) 4 mg NOW STAT IV 09/22/17 17:29 09/22/17 17:30 DC 09/22/17 17:51 4 MG Sodium Chloride 1,000 ml @ 999 mls/hr Q1H1M STAT IV 09/22/17 17:29 09/22/17 18:29 DC 09/22/17 17:51 999 MLS/HR Oxycodone HCl (Roxicodone Immediate Rel 5MG Home Pack) 1 homepack UD ONCE PO 09/22/17 19:45 09/22/17 19:46 DC 09/22/17 20:13 1 HOMEPACK Ketorolac Tromethamine (Toradol Inj) 30 mg NOW STAT IV 09/22/17 19:34 09/22/17 19:35 DC 09/22/17 19:55 30 MG ED Course 1724: The patient was evaluated in room C10. A complete history and physical examination were performed. 1728: Ordered Sodium Chloride 1000 mL @ 999 mL/hr IV, Zofran 4 mg IV. 1748: I checked on the patient at this time. She still believes there is something wrong with her abdomen. 1930: I checked on the patient again. She is still complaining of pain. 1933: Ordered Toradol 30 mg IV. 1942: Upon reevaluation, the patient is resting in bed. I discussed the results and treatment plan with her. She verbalized agreement of the treatment plan. The patient was discharged home. 1944: Ordered Oxycodone HCl 1 homepack PO. Medical Decision Prior records/ancillary studies reviewed. Triage Nursing notes reviewed. Differential diagnosis: Etiologies such as appendicitis, diverticulitis, PUD, biliary pathology, UTI, pancreatitis, obstruction, mesenteric ischemia, aortic pathology, infections, inflammatory bowel disease, renal colic, as well as others were entertained. The patient is a 51-year-old female who presented to the emergency department for right-sided abdominal pain. The patient was seen in our facility yesterday for similar complaints. I did review the patient's recent ER visit. She had a CT the abdomen and pelvis which did not show any acute abnormality but did show ovarian cyst. Initially they said they were unable to visualize the appendix however the CT was reviewed again by the radiologist on this evening and he feels that the appendix is normal in appearance on the recent CT scan. The patient did not have a physical exam consistent with an acute surgical abdomen. The patient was seen by her primary care physician today for follow-up appointment and for ongoing pain and was sent back to the emergency department for concerns of acute appendicitis. The patient's white blood cell count was not elevated. The patient's ultrasound did not reveal any definite cause for her pain. I discussed patient's laboratory and radiographic studies with her. I also discussed the frustration of abdominal pain with no definite cause in the emergency department as a diagnosis. I did recommend short-term follow-up with her primary care physician but I also recommended that she return the emergency department immediately if symptoms change worsen or if the need arises. Specifically she was instructed to return if pain became severe she developed rigid abdomen pain which was not controlled or if any other new worrisome symptoms develop. Medication Reconcilliation Current Medication List: was personally reviewed by me Blood Pressure Screening Patient's blood pressure: Elevated blood pressure Blood pressure disposition: Elevated BP felt to be situational Impression Primary Impression: Right lower quadrant abdominal pain Additional Impression: Suprapubic abdominal pain Scribe Attestation The scribe's documentation has been prepared under my direction and personally reviewed by me in its entirety. I confirm that the note above accurately reflects all work, treatment, procedures, and medical decision making performed by me. Departure Information Dispostion Home / Self-Care Referrals Giovani Avery M.D. (PCP) Forms Call Back Authorization, HOME CARE DOCUMENTATION FORM, IMPORTANT VISIT INFORMATION Patient Instructions My [facility] Additional Instructions Continue to use Motrin and Tylenol as directed for pain. Drink plenty clear liquids. Call your family doctor to schedule a follow-up appointment within the next 24 hours. If you consider taking the stronger pain medication I would recommend an [id number] stool softener such as MiraLAX or Colace. Return the emergency department immediately if signs of escalating abdominal pain develop such as high fever rigid abdomen rectal bleeding or if the need arises. Problem Qualifiers
[2017-09-22 17:59] LABS: BASO % 0.1 %; BASO ABS # 0.01 K/uL (0-0.2); EOS % 0.5 %; EOS ABS # 0.04 K/uL (0-0.5); HEMATOCRIT 38.9 % (37-47); HEMOGLOBIN 13.1 g/dL (12.0-16.0); IG# 0.01 K/uL (0.00-0.02); LYMPH % 19.2 %; LYMPH ABS # 1.56 K/uL (1.2-3.4); MEAN CELL VOLUME 88.6 fL (80-100); MEAN CORPUSCULAR HEMOGLOBIN 29.8 pg (25-34); MEAN CORPUSCULAR HGB CONC 33.7 g/dl (32-36); MEAN PLATELET VOLUME 10.5 fL (7.4-10.4); MONO % 6.7 %; MONO ABS # 0.54 K/uL (0.11-0.59); NEUT % 73.4 %; NEUT ABS # 5.95 K/uL (1.4-6.5); PLATELET COUNT 202 K/uL (130-400); RED CELL DISTRIBUTION WIDTH CV 12.5 % (11.5-14.5); RED CELL DISTRIBUTION WIDTH SD 40.5 fL (36.4-46.3); WHITE BLOOD COUNT 8.11 K/uL (4.8-10.8)
[2017-09-22 18:22] LABS: ALBUMIN 3.8 gm/dl (3.4-5.0); ALT/SGPT 22 U/L (12-78); AST/SGOT 17 U/L (15-37); CALCIUM 8.4 mg/dl (8.5-10.1); CARBON DIOXIDE 27 mmol/L (21-32); CREATININE 0.81 mg/dl (0.60-1.20); GLUCOSE 81 mg/dl (70-99); LIPASE 147 U/L (73-393); POTASSIUM 3.5 mmol/L (3.5-5.1); SODIUM 137 mmol/L (136-145)
[2017-09-22 18:23] LABS: ALKALINE PHOSPHATASE 83 U/L (45-117); TOTAL PROTEIN 7.8 gm/dl (6.4-8.2)
--- NOTE | 2017-09-22 18:54 | DIAGNOSTIC IMAGING REPORT ---
PELVIC COMPLETE NON OB CLINICAL HISTORY: RLQ pain, ovarian cyst PAIN COMPARISON STUDY: CT abdomen and pelvis 09/21/2017 FINDINGS: The uterus measured surgically absent. The right ovary measured 3.6 cm. Normal vascular flow. 2.4 x 2.3 cm simple cyst.. The left ovary measured 3.8 cm x 3.0 cm. Normal vascular flow. 2 cm simple cyst.. There is no ultrasonographic evidence of ovarian torsion. It should be noted that ovarian torsion can be present with normal Doppler ultrasonographic findings. There was no evidence of pathologic free pelvic fluid. IMPRESSION: Bilateral ovarian simple cysts. Otherwise negative study post hysterectomy. The above report was generated using voice recognition software. It may contain grammatical, syntax or spelling errors. Electronically signed by: Puneet Adams M.D. 09/22/2017 6:53 PM Dictated Date/Time: 09/22/2017 6:52 PM
[2017-09-22] MEDS ORDERED: KETOROLAC TROMETHAMINE 30 MG/ML VIAL IV STA (19:34)
[2017-09-22] MEDS ORDERED: OXYCODONE IR HOME PACK PO ONE (19:45)
[2017-09-22 19:52] LABS: BLOOD UREA NITROGEN 9 mg/dl (7-18)
[2017-09-22 20:14] VITALS: BP 119/68; PULSE 68; O2SAT 99
== END 2017-09-22 20:21 | disposition home or self-care (01) ==
LOC: C.EDB 17:19 → C.EDC 20:21
DX: R10.31 Right lower quadrant pain (principal); F41.9 Anxiety disorder, unspecified; F32.9 Major depressive disorder, single episode, unspecified; E11.9 Type 2 diabetes mellitus without complications; K21.9 Gastro-esophageal reflux disease without esophagitis; I10 Essential (primary) hypertension; Z79.899 Other long term (current) drug therapy; Z88.0 Allergy status to penicillin; Z88.7 Allergy status to serum and vaccine; Z88.8 Allergy status to other drugs, medicaments and biological substances

== ENCOUNTER 2017-09-27 17:42 | Emergency (ER) | payer SELFPAY ==
[~2017-09-27] VITALS: Ht 162.6 cm; Wt 72.4 kg
[2017-09-27 17:47] VITALS: TEMP 36.8; Ht 162.6 cm; Wt 72.4 kg
[2017-09-27] MEDS ORDERED: SODIUM CHLORIDE 0.9% 1000ML 1,000 ML IV STA (18:07)
[2017-09-27] MEDS ORDERED: KETOROLAC TROMETHAMINE 30 MG/ML VIAL IV STA (18:07)
[2017-09-27 18:31] LABS: BASO % 0.3 %; BASO ABS # 0.02 K/uL (0-0.2); EOS % 0.8 %; EOS ABS # 0.06 K/uL (0-0.5); HEMATOCRIT 38.8 % (37-47); HEMOGLOBIN 13.4 g/dL (12.0-16.0); IG# 0.02 K/uL (0.00-0.02); LYMPH % 22.9 %; LYMPH ABS # 1.65 K/uL (1.2-3.4); MEAN CORPUSCULAR HEMOGLOBIN 30.4 pg (25-34); MEAN CORPUSCULAR HGB CONC 34.5 g/dl (32-36); MEAN PLATELET VOLUME 10.3 fL (7.4-10.4); MONO % 7.9 %; MONO ABS # 0.57 K/uL (0.11-0.59); NEUT % 67.8 %; PLATELET COUNT 222 K/uL (130-400); RED CELL DISTRIBUTION WIDTH CV 12.6 % (11.5-14.5); RED CELL DISTRIBUTION WIDTH SD 40.6 fL (36.4-46.3); WHITE BLOOD COUNT 7.22 K/uL (4.8-10.8)
[2017-09-27] MEDS ORDERED: ONDANSETRON INJ 2 MG/ML 2 ML VIAL IV STA (18:37)
[2017-09-27 18:38] LABS: ISTAT CREATININE 0.9 mg/dl (0.6-1.3); ISTAT IONIZED CALCIUM 1.09 mmol/l (1.12-1.32); ISTAT POTASSIUM 3.8 mEq/L (3.3-5.0)
[2017-09-27] MEDS ORDERED: ACET-1256 PO (18:38)
[2017-09-27] MEDS ORDERED: ONDA4TAB10 SL (18:38)
[2017-09-27 18:53] LABS: CREATININE 0.9 mg/dl (0.60-1.20)
--- NOTE | 2017-09-27 18:53 | EMERGENCY ROOM VISIT NOTE ---
History First contact with patient: 17:52 Chief Complaint: ABDOMINAL PAIN Stated Complaint: PAIN IN RIGHT SIDE,DOCTOR REFERRED Nursing Triage Summary: Pt c/o intermittent right sided abdominal pain. Pt seen in ED last week, dx with ovarian cysts. F/u with [employer]ADER today, sent here for labs and CT of abd to r/o appendicitis. History of Present Illness The patient is a 51 year old female who presents to the Emergency Room with complaints of lower quadrant abdominal tenderness for 1 week. The patient was seen here twice last week with the same complaints. She states she had a CT scan and ultrasound performed and was diagnosed with ovarian cysts and encouraged to follow-up with gynecology. Patient states she saw Dr. Valles today who does not feel that the pain is coming from the ovarian cysts and suspects it may be coming from the appendix. The patient did have a CT scan performed last week which did not visualize the appendix. Patient states the pain has stayed relatively stable and describes it as "annoying". She rates the pain 5/10. She has been alternating Tylenol and Advil with mild relief in her symptoms. On last week she did have some nausea, but denies ongoing nausea. She reports a mildly decreased appetite, but has been tolerating food. She denies any abnormal vaginal bleeding or pain with intercourse. She denies any dysuria, hematuria, or urinary frequency. She denies any diarrhea or constipation. She denies any hematochezia or melena. The patient denies any recent illness or fever. She has history of cholecystectomy. She has also had a hysterectomy however does still have her ovaries. Review of Systems A complete 10 point review of systems was reviewed with the patient with pertinent positives and negatives as per history of present illness. All else were negative. Past Medical/Surgical History Medical Problems: (1) Abnormal CT scan, chest (2) Anxiety (3) Corpus luteum cyst (4) Depression (5) Diab Chloe Wo Compl, Type Ii Or Unspec Type, Not Uncntrld (6) Diarrhea (7) DM type 2 (diabetes mellitus, type 2) (8) GERD (gastroesophageal reflux disease) (9) H. pylori infection (10) H/o H pylori gastritis (11) H/O renal calculi (12) Hx-Vaccine Allergy (13) Hypertension Nos (14) Left ankle sprain (15) Menorrhagia Surgical Problems: (1) H/O total hysterectomy (2) H/O tubal ligation (3) History of cholecystectomy (4) S/p repair of ankle fracture Family History DVT MOTHER Diabetes mellitus Heart disease Hypertension Social History Smoking Status: Former Smoker Alcohol Use: none Drug Use: none Marital Status: , in relationship Housing Status: lives alone Occupation Status: employed Current/Historical Medications Scheduled Fluoxetine (Prozac), 20 MG PO DAILY Scheduled PRN Acetaminophen (Tylenol), 500 MG PO UD PRN for Pain Ondasetron Odt (Zofran Odt), 4 MG SL Q6H PRN for Nausea Physical Exam Vital Signs Date Time Temp Pulse Resp B/P (MAP) Pulse Ox O2 Delivery O2 Flow Rate FiO2 09/27/17 21:34 69 16 124/79 98 09/27/17 18:35 65 18 143/74 100 Room Air 09/27/17 17:47 36.8 74 18 126/76 98 Room Air Physical Exam VITALS: Vitals are noted on the nurse's note and reviewed by myself. Vital signs stable. GENERAL: This is a 51-year-old white female, in no acute distress, nondiaphoretic, well-developed well-nourished. SKIN: The skin was without rashes, erythema, edema, or bruising. There is no tenting of the skin. Capillary reflex less than 2 seconds. HEAD: Normocephalic atraumatic. EARS: External auditory canals clear, tympanic membranes pearly blake without erythema or effusion bilaterally. EYES: Pupils equal round and reactive to light and accommodation. Conjunctivae without injection, sclerae without icterus. Extraocular movements intact. NOSE: Patent, turbinates without inflammation or discharge. No sinus tenderness. MOUTH: Mucous membranes moist. Tonsils are not enlarged. Pharynx without erythema or exudate. Uvula midline. Airway patent. Tongue does not deviate. NECK: Supple without nuchal rigidity. No lymphadenopathy. No thyromegaly. Cervical spine is nontender. No JVD. HEART: Regular rate and rhythm without murmurs gallops or rubs. LUNGS: Clear to auscultation bilaterally without wheezes, rales or rhonchi. No dullness to percussion. No retractions or accessory muscle use. ABDOMEN: Positive bowel sounds x 4. Normal tympanic percussion. RLQ tenderness to palpation with guarding. Otherwise, soft, nontender, without masses or organomegaly. Schroeder sign negative. No rebound tenderness. No CVA tenderness MUSCULOSKELETAL: No muscle atrophy, erythema, or edema noted. Full range of motion without joint tenderness in all extremities. No tenderness to palpation. Normal gait. Strength 5/5 throughout. NEURO: Patient was alert and oriented to person place and time. Normal sensation to light and sharp touch. Deep tendon reflexes 2+ throughout. No focal neurological deficits. Medical Decision & Procedures ER Provider Diagnostic Interpretation: ABD/PELVIS IV AND ORAL CONT CT DOSE: 336.98 mGy.cm HISTORY: Pain RLQ abdominal pain TECHNIQUE: Multiaxial CT images of the abdomen and pelvis were performed following the use of intravenous and oral contrast. A dose lowering technique was utilized adhering to the principles of ALARA. COMPARISON STUDY: 09/21/2017 FINDINGS: Lung bases are clear. Liver spleen and pancreas are uniform. Kidneys negative for hydronephrosis. The adrenal glands are normal. Prior cholecystectomy. Nonobstructive bowel pattern. Appendix is not well seen although there is no significant pericecal inflammatory change. Bilateral ovarian cysts are present measuring 2.2 on the right and to 0.5 cm on the left. No free fluid within the pelvic cul-de-sac. IMPRESSION: 1. No significant change compared to the prior study. 2. Bilateral ovarian cysts similar to the prior study. 3. Prior cholecystectomy and hysterectomy. 4. Otherwise unremarkable exam. The above report was generated using voice recognition software. It may contain grammatical, syntax or spelling errors. Electronically signed by: Puneet Adams M.D. 09/27/2017 8:52 PM Dictated Date/Time: 09/27/2017 8:43 PM Laboratory Results 09/27/17 18:10 Red Blood Count 4.41, Mean Corpuscular Volume 88.0, Mean Corpuscular Hemoglobin 30.4, Mean Corpuscular Hemoglobin Concent 34.5, Mean Platelet Volume 10.3, Neutrophils (%) (Auto) 67.8, Lymphocytes (%) (Auto) 22.9, Monocytes (%) (Auto) 7.9, Eosinophils (%) (Auto) 0.8, Basophils (%) (Auto) 0.3, Neutrophils # (Auto) 4.90, Lymphocytes # (Auto) 1.65, Monocytes # (Auto) 0.57, Eosinophils # (Auto) 0.06, Basophils # (Auto) 0.02 09/27/17 18:10 Test 09/27/17 18:00 09/27/17 18:10 09/27/17 18:25 Urine Color YELLOW Urine Appearance CLEAR (CLEAR) Urine pH 7.0 (4.5-7.5) Urine Specific Meherrin 1.008 (1.000-1.030) Urine Protein NEG (NEG) Urine Glucose (UA) NEG (NEG) Urine Ketones NEG (NEG) Urine Occult Blood NEG (NEG) Urine Nitrite NEG (NEG) Urine Bilirubin NEG (NEG) Urine Urobilinogen NEG (NEG) Urine Leukocyte Esterase NEG (NEG) White Blood Count 7.22 K/uL (4.8-10.8) Red Blood Count 4.41 M/uL (4.2-5.4) Hemoglobin 13.4 g/dL (12.0-16.0) Hematocrit 38.8 % (37-47) Mean Corpuscular Volume 88.0 fL (80-100) Mean Corpuscular Hemoglobin 30.4 pg (25-34) Mean Corpuscular Hemoglobin Concent 34.5 g/dl (32-36) Platelet Count 222 K/uL (130-400) Mean Platelet Volume 10.3 fL (7.4-10.4) Neutrophils (%) (Auto) 67.8 % Lymphocytes (%) (Auto) 22.9 % Monocytes (%) (Auto) 7.9 % Eosinophils (%) (Auto) 0.8 % Basophils (%) (Auto) 0.3 % Neutrophils # (Auto) 4.90 K/uL (1.4-6.5) Lymphocytes # (Auto) 1.65 K/uL (1.2-3.4) Monocytes # (Auto) 0.57 K/uL (0.11-0.59) Eosinophils # (Auto) 0.06 K/uL (0-0.5) Basophils # (Auto) 0.02 K/uL (0-0.2) RDW Standard Deviation 40.6 fL (36.4-46.3) RDW Coefficient of Variation 12.6 % (11.5-14.5) Immature Granulocyte % (Auto) 0.3 % Immature Granulocyte # (Auto) 0.02 K/uL (0.00-0.02) Prothrombin Time 10.0 SECONDS (9.0-12.0) Prothromb Time International Ratio 1.0 (0.9-1.1) Est Creatinine Clear Calc Drug Dose 73.8 ml/min Estimated GFR () 87.0 Estimated GFR (Non- 75.1 BUN/Creatinine Ratio 10.9 (10-20) Calcium Level 8.3 mg/dl (8.5-10.1) Total Bilirubin 0.2 mg/dl (0.2-1) Aspartate Amino Transf (AST/SGOT) 10 U/L (15-37) Alanine Aminotransferase (ALT/SGPT) 22 U/L (12-78) Alkaline Phosphatase 73 U/L (45-117) Total Protein 7.9 gm/dl (6.4-8.2) Albumin 3.7 gm/dl (3.4-5.0) Globulin 4.2 gm/dl (2.5-4.0) Albumin/Globulin Ratio 0.9 (0.9-2) Lipase 159 U/L (73-393) Bedside Hemoglobin 13.6 g/dl (12.0-16.0) Bedside Hematocrit 40 % (37-47) Bedside Sodium 139 mEq/L (135-144) Bedside Potassium 3.8 mEq/L (3.3-5.0) Bedside Chloride 100 mEq/L (101-112) Bedside Total CO2 27 mEq/l (24-31) Anion Gap 17.0 mmol/L (16-25) Bedside Blood Urea Nitrogen 9 mg/dl (7-18) Bedside Creatinine 0.9 mg/dl (0.6-1.3) Bedside Glucose (other) 89 mg/dl (70-99) Bedside Ionized Calcium (Dolly) 1.09 mmol/l (1.12-1.32) Medications Administered Medications (Trade) Dose Ordered Sig/Orss Route Start Time Stop Time Status Last Admin Dose Admin Sodium Chloride 1,000 ml @ 999 mls/hr Q1H1M STAT IV 09/27/17 18:07 09/27/17 19:07 DC 09/27/17 18:15 999 MLS/HR Ketorolac Tromethamine (Toradol Inj) 30 mg NOW STAT IV 09/27/17 18:07 09/27/17 18:08 DC 09/27/17 18:35 30 MG Ondansetron HCl (Zofran Inj) 4 mg NOW STAT IV 09/27/17 18:37 09/27/17 18:38 DC 09/27/17 18:41 4 MG ED Course The patient was seen and evaluated as above. Previous medical records reviewed. IV access obtained, labs drawn. The patient was given IV normal saline solution , Zofran, and Toradol. Imaging performed and reviewed by myself and radiologist as above. I did consult with radiologist, Dr. Adams, who states this is not acute appendicitis , as was the concern. Labs reviewed by myself. I discussed the findings with the patient at bedside. I consulted with Dr. Zurita, backend python developer [employer]AD[employer]. She states she is familiar with the patient case and recommended the patient schedule an appointment within the next 2 weeks to discuss removal of the ovaries, as she suspects this may be causing the discomfort. Discharge instructions reviewed, the patient was discharged home in good condition. Medical Decision This is a 51 year old female who presents to the ED today complaining of ongoing RLQ abdominal tenderness x1 week. She has been seen multiple times here in the ED as well as in outpatient clinics over the past week with the only abnormal finding being right ovarian cyst. The patient has had extensive work- ups performed, including ABD/Pelvis CT scan with IV contrast, pelvic ultrasounds , and labs. There have been no abnormal laboratory findings and no evidence for acute appendicitis. The patient has been afebrile and denies associated symptoms. Here in the emergency department today, the patient's labs did not reveal any evidence for leukocytosis, anemia, thrombocytopenia. Coagulation factors normal. No significant renal, hepatic, electrolyte abnormalities. Lipase was normal. Urinalysis without signs of infection or blood. Repeat CT scan with IV and oral contrast again showed the right ovarian cyst, but the appendix was not well visualized. I did speak with Dr. 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 He feels very confident that there is no acute appendicitis at this time. I suspect the patient's pain is related to the ovarian cysts. I spoke with Dr. Zurita who was agreeable. She states she will have a discussion with the patient regarding surgical removal of the ovaries. I discussed this conversation and all findings with the patient at bedside. She was agreeable to the assessment and plan. All questions answered patient satisfaction prior to discharge. Etiologies such as appendicitis, diverticulitis, obstruction, inflammatory bowel disease, renal colic, PUD, biliary pathology, pancreatitis, mesenteric ischemia, aortic pathology, infections, genitourinary, UTI, perforated viscus, as well as others were entertained. The chart was completed utilizing [employer] Speech voice recognition software. Grammatical errors, random word insertions, pronoun errors, and incomplete sentences are an occasional consequence of this system due to software limitations, ambient noise, and hardware issues. Any formal questions or concerns about the content, text, or information contained within the body of this dictation should be directly addressed to the provider for clarification. Medication Reconcilliation Current Medication List: was personally reviewed by mi Blood Pressure Screening Patient's blood pressure: Normal blood pressure Impression Primary Impression: Right lower quadrant abdominal pain Additional Impression: Ovarian cyst Departure Information Dispostion Home / Self-Care Condition GOOD Referrals Giovani Avery M.D. (PCP) Megan Zurita MD Patient Instructions ED Abdominal Pain Unkn Cause, ED Cyst Ovarian, [facility] Additional Instructions You have been treated in the Emergency Department your Abdominal Pain. Laboratory results and imaging studies have ruled out any emergent causes for your abdominal pain which would warrant admission or surgery. Use the narcotics you were prescribed previously for pain. For pain control, you can use the following [id number] medicines (if >12 yo): Ibuprofen(Motrin, Advil) may be used for fever or pain. Use 600mg every six hours as needed. Take with food. Avoid using more than 2400mg in a 24 hour period. Do not use 2400mg per day for more than three consecutive days without physician direction. Prolonged inappropriate use can lead to stomach upset or ulcers. (AND/OR) Acetaminophen(Tylenol) may be used for fever or pain. Use 1000mg every six hours as needed. Avoid using more than 3000mg in a 24 hour period. Drink plenty of water and stay well hydrated. As with any trip to the Emergency Department, you should follow-up with your Primary Care Provider from today's visit. As discussed, you should follow-up with Dr. Zurita within 2 weeks. Contact the office to schedule this appointment. Return to the emergency department if your symptoms persist despite treatment plan outlined above or if the following symptoms occur: increased fevers, chills , worsening nausea/vomiting, blood in your stool or urine. Problem Qualifiers Additional Impression: Ovarian cyst Laterality: right Qualified Codes: N83.201 - Unspecified ovarian cyst, right side
[2017-09-27 18:54] LABS: ALBUMIN 3.7 gm/dl (3.4-5.0); CALCIUM 8.3 mg/dl (8.5-10.1); POTASSIUM 3.7 mmol/L (3.5-5.1); TOTAL PROTEIN 7.9 gm/dl (6.4-8.2)
[2017-09-27] MEDS ORDERED: FLUO20CA35 PO (20:09)
[2017-09-27] MEDS ORDERED: OPTIRAY 320 IV PRN (20:15)
--- NOTE | 2017-09-27 20:53 | DIAGNOSTIC IMAGING REPORT ---
ABD/PELVIS IV AND ORAL CONT CT DOSE: 336.98 mGy.cm HISTORY: Pain RLQ abdominal pain TECHNIQUE: Multiaxial CT images of the abdomen and pelvis were performed following the use of intravenous and oral contrast. A dose lowering technique was utilized adhering to the principles of ALARA. COMPARISON STUDY: 09/21/2017 FINDINGS: Lung bases are clear. Liver spleen and pancreas are uniform. Kidneys negative for hydronephrosis. The adrenal glands are normal. Prior cholecystectomy. Nonobstructive bowel pattern. Appendix is not well seen although there is no significant pericecal inflammatory change. Bilateral ovarian cysts are present measuring 2.2 on the right and to 0.5 cm on the left. No free fluid within the pelvic cul-de-sac. IMPRESSION: 1. No significant change compared to the prior study. 2. Bilateral ovarian cysts similar to the prior study. 3. Prior cholecystectomy and hysterectomy. 4. Otherwise unremarkable exam. The above report was generated using voice recognition software. It may contain grammatical, syntax or spelling errors. Electronically signed by: Puneet Adams M.D. 09/27/2017 8:52 PM Dictated Date/Time: 09/27/2017 8:43 PM
[2017-09-27 21:34] VITALS: BP 124/79; PULSE 69; O2SAT 98
== END 2017-09-27 21:35 | disposition home or self-care (01) ==
LOC: C.EDB 17:43 → C.EDC 21:35
DX: R10.31 Right lower quadrant pain (principal); N83.201 Unspecified ovarian cyst, right side; N83.202 Unspecified ovarian cyst, left side; F41.9 Anxiety disorder, unspecified; E11.9 Type 2 diabetes mellitus without complications; K21.9 Gastro-esophageal reflux disease without esophagitis; Z90.711 Acquired absence of uterus with remaining cervical stump; Z90.49 Acquired absence of other specified parts of digestive tract; Z87.891 Personal history of nicotine dependence; Z79.899 Other long term (current) drug therapy